=== PATIENT | female | born 1950 | race Caucasian/White ===

== ENCOUNTER 2017-10-05 13:04 | Inpatient (IN) | payer MEDICARE ==
[~2017-10-05] VITALS: Ht 152.4 cm; Wt 95.4 kg
[~2017-10-05 13:04] MED LIST: ATOR40TA69 PO; FURO40TA5 PO
[2017-10-09 15:57] VITALS: BP 119/66
[2017-10-09 16:02] LABS: CREATININE 1.3 mg/dL (0.5-1.5)
[2017-10-09 16:06] LABS: POTASSIUM 2.8 mmol/L (3.5-5.1)
[2017-10-09 16:16] LABS: INR 0.94 (0.85-1.15); PARTIAL THROMBOPLASTIN TIME 25.1 SEC (26.3-35.5); PROTHROMBIN TIME 9.9 SEC (9.6-11.6)
[2017-10-09] MEDS ORDERED: ALPR0.5T PO (16:34)
[2017-10-09] MEDS ORDERED: BUME2TAB18 PO (16:34)
[2017-10-09] MEDS ORDERED: SENN-175 PO (16:34)
[2017-10-09] MEDS ORDERED: TYL3 PO (16:34)
[2017-10-09] MEDS ORDERED: ESCI20TA36 PO (16:34)
[2017-10-09] MEDS ORDERED: QUET300XR PO (16:34)
[2017-10-09] MEDS ORDERED: POTA-79 PO (16:34)
[2017-10-09] MEDS ORDERED: LEVO125T4 PO (16:34)
[2017-10-10 07:08] LABS: APPEARANCE,URINE Clear (CLEAR); BILIRUBIN,URINE Negative (NEGATIVE); COLOR,URINE Yellow (YELLOW); GLUCOSE, URINE (UA) Negative (NEGATIVE); KETONES,URINE Negative (NEGATIVE); LEUKOCYTE ESTERASE ,URINE Negative (NEGATIVE); NITRATE,URINE Negative (NEGATIVE); OCCULT BLOOD,URINE Negative (NEGATIVE); PROTEIN,URINE Negative (NEGATIVE); UROBILINOGEN,URINE 0.2 mg/dL (0.2-1.0)
[2017-10-10] MEDS ORDERED: SODIUM CHLORIDE 0.9% 1000ML 1,000 ML IV ONE (07:19)
[2017-10-10] MEDS ORDERED: POTASSIUM CHLORIDE 20MEQ/100ML 100 ML IV ONE (07:31)
[2017-10-10] MEDS ORDERED: POTASSIUM CHLORIDE 20MEQ/100ML 100 ML IV PRN (07:45)
[2017-10-10] MEDS ORDERED: LIDOCAINE HCL-MPF 1% 2ML VIAL IJ PRN (07:45)
[2017-10-10] MEDS ORDERED: POTASSIUM CHLORIDE 20 MEQ ERTAB PO PRN (07:45)
[2017-10-10] MEDS ORDERED: SODIUM CHLORIDE 0.9% 1000ML 1,000 ML IV SCH (07:45)
[2017-10-10] MEDS ORDERED: POTASSIUM CHLORIDE 10% ELIXIR 20 MEQ/15 ML UDCUP PO PRN (07:45)
[2017-10-10 07:54] VITALS: BP 97/64
== END 2017-10-10 09:36 | disposition home or self-care (01) | DRG 556 ==
LOC: EDSTATUS 15:15 → DAHIP 10-10 06:28
PROVIDERS: ADMIT Orthopaedic Surgery; ATTEND Orthopaedic Surgery
DX: M25.562 Pain in left knee (principal); E87.5 Hyperkalemia; E03.9 Hypothyroidism, unspecified; G89.29 Other chronic pain; E78.5 Hyperlipidemia, unspecified; K21.9 Gastro-esophageal reflux disease without esophagitis; F32.9 Major depressive disorder, single episode, unspecified; F41.9 Anxiety disorder, unspecified; Z98.49 Cataract extraction status, unspecified eye; Z88.1 Allergy status to other antibiotic agents; Z91.040 Latex allergy status; Z91.048 Other nonmedicinal substance allergy status; Z84.89 Family history of other specified conditions
CPT/HCPCS: 36415; 80048; 81003; 84132; 85610; 85730; J3480; J7030

== ENCOUNTER 2017-11-23 15:30 | Inpatient (IN) | payer MEDICARE ==
[~2017-11-23] VITALS: Ht 152.4 cm; Wt 98.8 kg
[~2017-11-23 15:30] MED LIST changes: +ALPR0.5T PO; +ESCI20TA36 PO; -FURO40TA5 PO; +LEVO125T4 PO; +POTA-79 PO; +QUET300XR PO; +SENN-175 PO; +TYL3 PO
[2017-11-23 16:15] VITALS: BP 107/65
[2017-11-23 16:26] LABS: BASOPHILS % (AUTO) 0.7 % (0.0-5.0); EOSINOPHILS % (AUTO) 3.7 % (0.0-8.0); HEMATOCRIT 36.6 % (36-48); LYMPHOCYTES % (AUTO) 43.4 % (21.0-51.0); MEAN CORPUSCULAR HEMOGLOBIN 30.9 pg (27.0-33.0); MEAN CORPUSCULAR HGB CONC 34.5 g/dL (32.0-36.0); MEAN CORPUSCULAR VOLUME 89.6 fL (79-99); MONOCYTES % (AUTO) 6.1 % (3.0-13.0); NEUTROPHILS % (AUTO) 46.1 % (40.0-77.0); NUCLEATED RED BLOOD CELLS 0.1 % (0.0-0.19); PLATELET COUNT (AUTO) 254 K/uL (130-400); RED BLOOD CELL COUNT(AUTO) 4.08 MIL/uL (4.00-5.50); RED CELL DISTRIBUTION WIDTH 15.5 % (11.0-15.5); WHITE BLOOD COUNT (AUTO) 8.5 K/uL (4.8-10.8)
[2017-11-23 16:38] LABS: POTASSIUM 4.4 mmol/L (3.5-5.1)
[2017-11-23 16:42] LABS: INR 0.95 (0.85-1.15); PARTIAL THROMBOPLASTIN TIME 26.1 SEC (26.3-35.5)
[2017-11-23] MEDS ORDERED: FURO40TA5 PO (16:54)
[2017-11-26] VITALS (22 sets, daily range): BP systolic 109–152; BP diastolic 60–83
[2017-11-26] MEDS ORDERED: DEXAMETHASONE SOD PHOSPHATE 10MG/ML 1ML VIAL ONE (09:33)
[2017-11-26] MEDS ORDERED: NEOSTIGMINE 5MG/5ML SYR IV ONE ×2 (09:33→13:23)
[2017-11-26] MEDS ORDERED: GLYCOPYRROLATE 0.2 MG/ML 5 ML VIAL ONE ×2 (09:33→13:23)
[2017-11-26] MEDS ORDERED: ONDANSETRON HCL 4 MG/2 ML VIAL ONE (09:33)
[2017-11-26] MEDS ORDERED: LIDOCAINE PF 2% 5ML ABBOJECT ONE (09:33)
[2017-11-26] MEDS ORDERED: MIDAZOLAM HCL 1 MG/ML 2ML VIAL ONE (09:34)
[2017-11-26] MEDS ORDERED: FENTANYL CITRATE PF 50 MCG/1 ML 2ML VIAL ONE ×2 (09:34→12:49)
[2017-11-26] MEDS ORDERED: PROPOFOL 10 MG/ML 20ML VIAL IV ONE ×2 (09:34→14:05)
[2017-11-26] MEDS ORDERED: LACTATED RINGERS 1000ML 1,000 ML IV ONE (09:48)
[2017-11-26] MEDS: CEFAZOLIN SODIUM 1 GM VIAL IVP SCH ×3 (10:00→18:50)
[2017-11-26] MEDS ORDERED: ESOM40SU PO (10:38)
[2017-11-26] MEDS ORDERED: KETOROLAC TROMETHAMINE 15MG/ML ONE (11:08)
[2017-11-26] MEDS ORDERED: ACETAMINOPHEN EXTRA STRENGTH 500 MG TABLET ONE (11:08)
[2017-11-26] MEDS ORDERED: CELECOXIB 200 MG CAP ONE (11:08)
[2017-11-26] MEDS ORDERED: METOCLOPRAMIDE 10 MG/2 ML VIAL ONE (11:08)
[2017-11-26] MEDS ORDERED: OXYCODONE HCL 10 MG TAB.SR.12H PO ONE (11:09)
[2017-11-26] MEDS ORDERED: EPINEPHRINE 1 MG/ML AMPULE ONE (11:14)
[2017-11-26] MEDS ORDERED: BUPIVACAINE/PF 0.25% 30ML VIAL IJ ONE (11:14)
[2017-11-26] MEDS ORDERED: TRANEXAMIC ACID 1000MG/10ML IV ONE (11:15)
[2017-11-26] MEDS ORDERED: CEFAZOLIN SODIUM 1 GM VIAL ONE (11:15)
[2017-11-26] MEDS ORDERED: PHENYLEPHRINE HCL 10 MG/ML 1ML VIAL IV ONE ×2 (13:18→13:22)
[2017-11-26] MEDS ORDERED: ROCURONIUM BROMIDE 10MG/1ML 5ML VL ONE (13:23)
[2017-11-26] MEDS ORDERED: FENTANYL CITRATE PF 50 MCG/1 ML 5ML AMP IV ONE (13:49)
[2017-11-26] MEDS: SODIUM CHLORIDE 0.9% 1000ML 1,000 ML IV SCH (14:27)
[2017-11-26] MEDS ORDERED: POTASSIUM CHLORIDE 20 MEQ ERTAB PO PRN (14:30)
[2017-11-26] MEDS ORDERED: DiphenhydrAMINE HCL 50 MG/ML VIAL IVP PRN (14:30)
[2017-11-26] MEDS ORDERED: POTASSIUM CHLORIDE 20MEQ/100ML 100 ML IV PRN (14:30)
[2017-11-26] MEDS ORDERED: CALCIUM CARBONATE 500 MG TABLET PO PRN (14:30)
[2017-11-26] MEDS ORDERED: OXYCODONE HCL 5 MG TAB PO PRN ×2 (14:30)
[2017-11-26] MEDS ORDERED: TRAMADOL HCL 50 MG TABLET PO PRN (14:30)
[2017-11-26] MEDS ORDERED: ONDANSETRON HCL 4 MG/2 ML VIAL IVP PRN (14:30)
[2017-11-26] MEDS: ACETAMINOPHEN EXTRA STRENGTH 500 MG TABLET PO SCH ×2 (14:30→21:52)
[2017-11-26] MEDS ORDERED: POTASSIUM CHLORIDE 10% ELIXIR 20 MEQ/15 ML UDCUP PO PRN (14:30)
[2017-11-26] MEDS ORDERED: KETOROLAC TROMETHAMINE 15MG/ML IV PRN (14:30)
[2017-11-26] MEDS ORDERED: TEMAZEPAM 15 MG CAPSULE PO PRN (14:30)
[2017-11-26] MEDS ORDERED: FERROUS FUMARATE 324 MG TABLET PO PRN (14:30)
[2017-11-26] MEDS ORDERED: LIDOCAINE HCL-MPF 1% 2ML VIAL IVP PRN (14:30)
[2017-11-26] MEDS ORDERED: SUB TO ALBUTEROL 2.5MG/3ML NEBULES PER P&T IH ONE (14:47)
[2017-11-26] MEDS ORDERED: ALBUTEROL SULFATE 0.083% 2.5 MG/3 ML INH IH ONE (14:50)
[2017-11-26] MEDS ORDERED: CEFAZOLIN 2GM / 50 ML 50 ML IV SCH (19:30)
[2017-11-26] MEDS ORDERED: QUETIAPINE FUMARATE 300 MG PO SCH (21:00)
[2017-11-26] MEDS: PREGABALIN 25 MG CAP PO SCH (21:51)
[2017-11-26] MEDS: FAMOTIDINE 20MG TAB 20 MG TAB PO SCH (21:51)
[2017-11-26] MEDS: ASPIRIN 325 MG TABLET PO SCH (21:51)
[2017-11-27] VITALS: BP 102/60
[2017-11-27] MEDS: SODIUM CHLORIDE 0.9% 1000ML 1,000 ML IV SCH ×2 (02:40→10:27)
[2017-11-27] MEDS: CEFAZOLIN SODIUM 1 GM VIAL IVP SCH (02:52)
[2017-11-27 04:00] VITALS: BP 114/66
[2017-11-27 05:47] LABS: MEAN CORPUSCULAR HEMOGLOBIN 29.6 pg (27.0-33.0); MEAN CORPUSCULAR HGB CONC 32.8 g/dL (32.0-36.0); PLATELET COUNT (AUTO) 234 K/uL (130-400); RED BLOOD CELL COUNT(AUTO) 3.89 MIL/uL (4.00-5.50); RED CELL DISTRIBUTION WIDTH 15.5 % (11.0-15.5); WHITE BLOOD COUNT (AUTO) 9.4 K/uL (4.8-10.8)
[2017-11-27 05:58] LABS: CREATININE 1.1 mg/dL (0.5-1.5); POTASSIUM 5.3 mmol/L (3.5-5.1)
[2017-11-27] MEDS ORDERED: LEVOTHYROXINE 125 MCG TABLET PO SCH (06:30)
[2017-11-27] MEDS: ACETAMINOPHEN EXTRA STRENGTH 500 MG TABLET PO SCH ×2 (06:37→14:03)
[2017-11-27] MEDS: PREGABALIN 25 MG CAP PO SCH (08:41)
[2017-11-27] MEDS: ASPIRIN 325 MG TABLET PO SCH (08:41)
[2017-11-27] MEDS: FAMOTIDINE 20MG TAB 20 MG TAB PO SCH (08:41)
[2017-11-27] MEDS ORDERED: ALPRAZOLAM 0.5 MG TABLET PO SCH (09:00)
[2017-11-27] MEDS ORDERED: ATORVASTATIN CALCIUM 40 MG TABLET PO SCH (09:00)
[2017-11-27] MEDS ORDERED: FUROSEMIDE 40 MG TABLET PO SCH (09:00)
[2017-11-27] MEDS ORDERED: SENNOSIDES 8.6 MG TABLET PO SCH (09:00)
[2017-11-27] MEDS ORDERED: POLYETHYLENE GLYCOL 3350 17 GM POWD.PACK PO SCH (09:00)
[2017-11-27] MEDS ORDERED: POTASSIUM CHLORIDE 20 MEQ ERTAB PO SCH (09:00)
[2017-11-27] MEDS ORDERED: CITALOPRAM 20 MG TABLET PO SCH (09:00)
[2017-11-27 09:03] VITALS: BP 129/73
[2017-11-27 11:29] VITALS: BP 118/66
[2017-11-27 16:43] VITALS: BP 130/62
[2017-11-27] MEDS ORDERED: HYDR-309 PO (17:54)
[2017-11-27] MEDS ORDERED: ASPI-1012 PO (17:54)
[2017-11-27 19:15] VITALS: BP 114/65
[2017-11-29] MEDS ORDERED: BISACODYL 10 MG SUPP.RECT RC PRN (14:30)
== END 2017-11-27 21:00 | disposition home health service (06) | DRG 469 ==
LOC: EDSTATUS 15:30 → DAHIP 11-26 09:16 → 4AH 11-26 15:16
PROVIDERS: ADMIT Orthopaedic Surgery; ATTEND Orthopaedic Surgery
PROC: 0SRG0J9 Replacement of Left Ankle Joint with Synthetic Substitute, Cemented, Open Approach (ICD-10-PCS; principal; 2017-11-26 12:20)
PROC: 0SPG0JZ Removal of Synthetic Substitute from Left Ankle Joint, Open Approach (ICD-10-PCS; 2017-11-26 12:20)
DX: T84.84XA Pain due to internal orthopedic prosthetic devices, implants and grafts, initial encounter (principal); G89.29 Other chronic pain; E78.5 Hyperlipidemia, unspecified; K21.9 Gastro-esophageal reflux disease without esophagitis; F32.9 Major depressive disorder, single episode, unspecified; Y83.8 Other surgical procedures as the cause of abnormal reaction of the patient, or of later complication, without mention of misadventure at the time of the procedure; F41.9 Anxiety disorder, unspecified; Z98.51 Tubal ligation status; Y92.89 Other specified places as the place of occurrence of the external cause; Z98.49 Cataract extraction status, unspecified eye; M17.11 Unilateral primary osteoarthritis, right knee
CPT/HCPCS: 36415; 80048; 85025; 85027; 85610; 85730; 87070; 87076; 87205; 88300; 88305; 88311; 96374; 96375; A4218; J0171; J0690; J1100; J1885; J2001; J2250; J2370; J2405; J2704; J2710; J2765; J3010; J3490; J7030; J7120

== ENCOUNTER → 2019-02-21 | Outpatient (CLI) | payer MEDICARE ==
[~2019-02-21] MED LIST changes: +ASPI-1012 PO; +ESOM40SU PO; +FURO40TA5 PO; +HYDR-4457 PO; -POTA-79 PO; +QUET300T5 PO; -QUET300XR PO; -SENN-175 PO; +SENN8.6T32 PO; -TYL3 PO
== END | disposition home or self-care (01) ==
LOC: SHCH 15:10
PROVIDERS: ATTEND Internal Medicine Cardiovascular Disease
DX: I73.9 Peripheral vascular disease, unspecified (principal)
CPT/HCPCS: 93922

== ENCOUNTER → 2020-11-11 | Outpatient (CLI) | payer OTHER ==
[~2020-11-11] MED LIST changes: -ESCI20TA36 PO; +ESCI20TA38 PO
== END | disposition home or self-care (01) ==
LOC: OIH 13:03
PROVIDERS: ATTEND Internal Medicine Cardiovascular Disease
DX: Z13.6 Encounter for screening for cardiovascular disorders (principal)
CPT/HCPCS: 75571

== ENCOUNTER → 2021-05-25 | Outpatient (CLI) | payer MEDICARE | END | disposition home or self-care (01) | LOC: RAH 10:00 | PROVIDERS: ATTEND Internal Medicine | DX: M79.605 Pain in left leg (principal); M79.672 Pain in left foot; R60.0 Localized edema; W19.XXXA Unspecified fall, initial encounter | CPT/HCPCS: 73590; 73610 ==

== ENCOUNTER 2022-07-04 13:45 | Emergency (ER) | payer MEDICARE | END 2022-07-04 14:00 | disposition home or self-care (01) | LOC: CANPREER → EDH 13:45 ==

== ENCOUNTER 2022-10-26 11:41 | Emergency (ER) | payer MEDICARE ==
[~2022-10-26] VITALS: Ht 152.4 cm; Wt 77.1 kg
[2022-10-26 12:19] LABS: BASOPHILS % (AUTO) 0.7 % (0.0-5.0); EOSINOPHILS % (AUTO) 3.8 % (0.0-8.0); LYMPHOCYTES % (AUTO) 43.6 % (21.0-51.0); MEAN CORPUSCULAR HEMOGLOBIN 31.8 pg (27.0-33.0); MEAN CORPUSCULAR HGB CONC 33.3 g/dL (32.0-36.0); MEAN CORPUSCULAR VOLUME 95.4 fL (79-99); MONOCYTES % (AUTO) 6.3 % (3.0-13.0); NEUTROPHILS % (AUTO) 45.5 % (40.0-77.0); PLATELET COUNT (AUTO) 216 K/uL (130-400); RED BLOOD CELL COUNT(AUTO) 4.09 MIL/uL (4.00-5.50); RED CELL DISTRIBUTION WIDTH 14.5 % (11.0-15.5); WHITE BLOOD COUNT (AUTO) 6.9 K/uL (4.8-10.8)
[2022-10-26 12:46] LABS: CARBON DIOXIDE 28 mmol/L (21-32); CHLORIDE 104 mmol/L (101-111); CREATININE 1.2 mg/dL (0.5-1.5); GLOMERULAR FILTR. RATE CALC 48 mL/min (>90); GLUCOSE,RANDOM 88 mg/dL (70-105); POTASSIUM 3.5 mmol/L (3.5-5.1); SODIUM SERUM 137 mmol/L (136-145); UREA NITROGEN, BLOOD 9 mg/dL (7-18)
[2022-10-26 12:50] LABS: ALANINE AMINOTRANSFERASE 12 U/L (12-78); ALBUMIN 3.3 g/dL (3.5-5.0); ASPARTATE AMINOTRANSFERASE 25 U/L (10-37); SALICYLATE 3.2 mg/dL (2.8-20.0); TOTAL PROTEIN, SERUM 7.1 g/dL (6.0-8.3)
[2022-10-26 12:54] LABS: ACETAMINOPHEN < 1 mcg/mL (10-30)
[2022-10-26 13:36] LABS: APPEARANCE,URINE CLOUDY (CLEAR); BILIRUBIN,URINE NEGATIVE (NEGATIVE); COLOR,URINE LIGHT-YELLOW (YELLOW); GLUCOSE, URINE (UA) NEGATIVE (NEGATIVE); KETONES,URINE NEGATIVE (NEGATIVE); LEUKOCYTE ESTERASE ,URINE 75 Leu/uL (NEGATIVE); NITRATE,URINE NEGATIVE (NEGATIVE); OCCULT BLOOD,URINE NEGATIVE (NEGATIVE); PROTEIN,URINE NEGATIVE (NEGATIVE); UROBILINOGEN,URINE 0.2 mg/dL (0.2-1.0)
[2022-10-26 13:43] LABS: AMPHET/METH SCREEN,URINE POSITIVE (NEGATIVE); BARBITURATE SCREEN, URINE NEGATIVE (NEGATIVE); BENZODIAZEPINES SCREEN,URINE NEGATIVE (NEGATIVE); CANNABINOID SCREEN,URINE NEGATIVE (NEGATIVE); COCAINE SCREEN,URINE NEGATIVE (NEGATIVE); OPIATE SCREEN,URINE NEGATIVE (NEGATIVE); PHENCYCLIDINE SCREEN,URINE NEGATIVE (NEGATIVE)
[2022-10-26 13:47] LABS: BACTERIA,URINE FEW /HPF (None Seen); MUCUS,URINE RARE LPF (None Seen); OTHER CASTS, URINE 1 /LPF (None Seen); RBC,URINE 0-1 /HPF (0-1); SQUAMOUS EPITHELIAL CELL,UR FEW /HPF (0-2); TRANSITIONAL EPI CELLS,URINE RARE /HPF (None Seen)
[2022-10-26] MEDS ORDERED: CEFTRIAXONE 1G VIAL IVPB SCH (14:00)
[2022-10-26 16:00] VITALS: BP 128/70
== END 2022-10-26 16:47 | disposition home or self-care (01) ==
LOC: EDH 11:41
DX: R44.3 Hallucinations, unspecified (principal); N39.0 Urinary tract infection, site not specified; F99 Mental disorder, not otherwise specified; Z79.82 Long term (current) use of aspirin; Z79.899 Other long term (current) drug therapy; Z88.2 Allergy status to sulfonamides; Z91.040 Latex allergy status
CPT/HCPCS: 99285; 96365; 71045; 96366; 80053; 80305; 85025; 87077; 87088; 87186; 81001; 36415; 93005; G0481; J0696

== ENCOUNTER 2023-08-04 12:05 | Emergency (ER) | payer MEDICARE ==
[~2023-08-04] VITALS: Ht 152.4 cm; Wt 63.0 kg
[2023-08-04] MEDS ORDERED: MOXIOS OD (13:57)
[2023-08-04] MEDS ORDERED: CLIN-141 PO (13:57)
[2023-08-04] MEDS: CLINDAMYCIN 150 MG CAP PO STA (14:01)
[2023-08-04 14:18] VITALS: BP 114/67; PULSE 74; RESP 18; O2SAT 99
== END 2023-08-04 14:23 | disposition home or self-care (01) ==
LOC: EDH 12:05
DX: H10.89 Other conjunctivitis (principal); H01.006 Unspecified blepharitis left eye, unspecified eyelid; Z79.82 Long term (current) use of aspirin; Z79.890 Hormone replacement therapy; Z79.899 Other long term (current) drug therapy; Z88.2 Allergy status to sulfonamides; Z91.040 Latex allergy status

== ENCOUNTER 2024-01-06 14:34 | Inpatient (IN) | payer MEDICARE ==
[~2024-01-06] VITALS: Ht 152.4 cm; Wt 61.5 kg
[~2024-01-06 14:34] MED LIST changes: -ALPR0.5T PO; -HYDR-4457 PO; -LEVO125T4 PO; +LEVO125T95 PO
[2024-01-06 15:30] LABS: BASOPHILS # (AUTO) 0.04 K/uL (0.00-0.20); BASOPHILS % (AUTO) 0.5 % (0.0-5.0); EOSINOPHILS # (AUTO) 0.18 K/uL (0.00-0.70); EOSINOPHILS % (AUTO) 2.4 % (0.0-8.0); HEMATOCRIT 27.4 % (36-48); IMMATURE GRANULOCYTE ABSOLUTE 0.05 K/uL (0-1); LYMPHOCYTES # (AUTO) 1.9 K/uL (1.0-4.8); LYMPHOCYTES % (AUTO) 24.7 % (21.0-51.0); MEAN CORPUSCULAR HEMOGLOBIN 36.4 pg (27.0-33.0); MEAN CORPUSCULAR HGB CONC 33.6 g/dL (32.0-36.0); MEAN CORPUSCULAR VOLUME 108.3 fL (79-99); MONOCYTES # (AUTO) 0.7 K/uL (0.1-1.0); MONOCYTES % (AUTO) 8.7 % (3.0-13.0); NEUTROPHILS # (AUTO) 4.7 K/uL (1.8-7.7); PLATELET COUNT (AUTO) 172 K/uL (130-400); RED BLOOD CELL COUNT(AUTO) 2.53 MIL/uL (4.00-5.50); RED CELL DISTRIBUTION WIDTH 15.9 % (11.0-15.5); WHITE BLOOD COUNT (AUTO) 7.5 K/uL (4.8-10.8)
[2024-01-06 15:43] LABS: INR 1.03 (0.85-1.15); PROTHROMBIN TIME 11.1 SEC (9.6-11.6)
[2024-01-06 15:44] LABS: PARTIAL THROMBOPLASTIN TIME 24.5 SEC (26.3-35.5)
[2024-01-06 15:49] LABS: CARBON DIOXIDE 27 mmol/L (21-32); CHLORIDE 108 mmol/L (101-111); CREATININE 1.2 mg/dL (0.5-1.0); GLOMERULAR FILTR. RATE CALC 48 mL/min (>90); GLUCOSE,RANDOM 89 mg/dL (70-105); POTASSIUM 4.1 mmol/L (3.5-5.1); SODIUM SERUM 141 mmol/L (136-145); UREA NITROGEN, BLOOD 26 mg/dL (7-18)
[2024-01-06 15:54] LABS: AMMONIA < 10 umol/L (11-32); CREATINE KINASE, TOTAL 30 U/L (21-232)
[2024-01-06 16:18] LABS: SARS-CoV-2, RNA, NAAT NEGATIVE SARS CoV-2 (NEGATIVE)
[2024-01-06 17:06] LABS: APPEARANCE,URINE CLEAR (CLEAR); BILIRUBIN,URINE NEGATIVE (NEGATIVE); COLOR,URINE LIGHT-YELLOW (YELLOW); GLUCOSE, URINE (UA) NEGATIVE (NEGATIVE); KETONES,URINE NEGATIVE (NEGATIVE); LEUKOCYTE ESTERASE ,URINE 250 Leu/uL (NEGATIVE); NITRATE,URINE NEGATIVE (NEGATIVE); OCCULT BLOOD,URINE NEGATIVE (NEGATIVE); PH,URINE 7.5 (5.0-8.0); PROTEIN,URINE NEGATIVE (NEGATIVE); UROBILINOGEN,URINE 0.2 mg/dL (0.2-1.0)
[2024-01-06 17:12] LABS: SQUAMOUS EPITHELIAL CELL,UR RARE /HPF (0-2); WBC,URINE 51-100 /HPF (0-1)
[2024-01-06 17:13] LABS: AMPHET/METH SCREEN,URINE NEGATIVE (NEGATIVE); BARBITURATE SCREEN, URINE NEGATIVE (NEGATIVE); BENZODIAZEPINES SCREEN,URINE NEGATIVE (NEGATIVE); CANNABINOID SCREEN,URINE NEGATIVE (NEGATIVE); COCAINE SCREEN,URINE NEGATIVE (NEGATIVE); OPIATE SCREEN,URINE NEGATIVE (NEGATIVE); PHENCYCLIDINE SCREEN,URINE NEGATIVE (NEGATIVE)
[2024-01-06] MEDS: CEFTRIAXONE 1G VIAL IVPB ONE (18:41)
[2024-01-06] MEDS ORDERED: CEFTRIAXONE 1G VIAL 1 GM in 0.9%NACL 50ML 50 ML IV SCH (19:00)
[2024-01-06] MEDS ORDERED: MORPHINE 4 MG SYG IV PRN (19:00)
[2024-01-06] MEDS ORDERED: CEFTRIAXONE 1G VIAL IVPB SCH (19:00)
[2024-01-06] MEDS ORDERED: ONDANSETRON 4MG INJ IV PRN (19:00)
[2024-01-06] MEDS ORDERED: ACETAMINOPHEN 325 MG TAB PO PRN ×2 (19:00)
[2024-01-06] MEDS: IPRATROPIUM/ALBUTEROL SULFATE 3 ML SOLUTION IH ONE (22:43)
[2024-01-06] MEDS: IPRATROPIUM/ALBUTEROL SULFATE 3 ML SOLUTION IH SCH (23:20)
[2024-01-06 23:24] VITALS: PULSE 56; RESP 18
[2024-01-06 23:25] VITALS: PULSE 58; RESP 18; O2SAT 98
[2024-01-06 23:45] VITALS: BP 120/60; PULSE 61; RESP 18; O2SAT 98
[2024-01-07] VITALS (12 sets, daily range): BP systolic 90–106; BP diastolic 40–65; PULSE 49–71; RESP 14–18; O2SAT 98
[2024-01-07] MEDS: LEVOTHYROXINE 125 MCG TABLET PO SCH (05:38)
[2024-01-07] MEDS: BUDESONIDE 0.5 MG/2 ML INH IH SCH (06:32)
[2024-01-07] MEDS: NICOTINE 14 MG/ 24 HR PATCH TD SCH (09:00)
[2024-01-07] MEDS: ENOXAPARIN SODIUM 40 MG/0.4 ML SYRINGE SQ SCH (10:20)
[2024-01-07] MEDS: FAMOTIDINE 20MG TAB PO SCH (10:20)
[2024-01-07 14:39] LABS: BASOPHILS # (AUTO) 0.05 K/uL (0.00-0.20); BASOPHILS % (AUTO) 0.7 % (0.0-5.0); EOSINOPHILS # (AUTO) 0.16 K/uL (0.00-0.70); EOSINOPHILS % (AUTO) 2.4 % (0.0-8.0); HEMATOCRIT 30.5 % (36-48); IMMATURE GRANULOCYTE ABSOLUTE 0.03 K/uL (0-1); MEAN CORPUSCULAR HEMOGLOBIN 36.1 pg (27.0-33.0); MEAN CORPUSCULAR HGB CONC 32.5 g/dL (32.0-36.0); MEAN CORPUSCULAR VOLUME 111.3 fL (79-99); MONOCYTES # (AUTO) 0.6 K/uL (0.1-1.0); MONOCYTES % (AUTO) 9.2 % (3.0-13.0); NEUTROPHILS # (AUTO) 3.9 K/uL (1.8-7.7); NEUTROPHILS % (AUTO) 57.3 % (40.0-77.0); PLATELET COUNT (AUTO) 183 K/uL (130-400); RED BLOOD CELL COUNT(AUTO) 2.74 MIL/uL (4.00-5.50); RED CELL DISTRIBUTION WIDTH 15.9 % (11.0-15.5); WHITE BLOOD COUNT (AUTO) 6.8 K/uL (4.8-10.8)
[2024-01-07 14:56] LABS: CREATININE 1.3 mg/dL (0.5-1.0); THYROID STIMULATING HORMONE 51.3 uIU/mL (0.36-3.74)
[2024-01-07] MEDS: CEFTRIAXONE 1G VIAL IVPB SCH (18:50)
[2024-01-08] VITALS (12 sets, daily range): BP systolic 85–147; BP diastolic 41–92; PULSE 43–76; RESP 16–18; O2SAT 97–99
[2024-01-08] MEDS: CEFTRIAXONE 1G VIAL IVPB SCH (09:49)
[2024-01-08] MEDS: NACL IV ONE (09:49)
[2024-01-08] MEDS ORDERED: MORPHINE 2 MG SYG IV PRN (12:30)
[2024-01-08] MEDS: MIDODRINE HCL 5 MG TABLET PO PRN (13:53)
[2024-01-09] VITALS (7 sets, daily range): BP systolic 88–104; BP diastolic 30–62; PULSE 50–65; RESP 18; O2SAT 92–100
[2024-01-09 05:17] LABS: BASOPHILS # (AUTO) 0.05 K/uL (0.00-0.20); BASOPHILS % (AUTO) 0.8 % (0.0-5.0); EOSINOPHILS # (AUTO) 0.19 K/uL (0.00-0.70); EOSINOPHILS % (AUTO) 3.1 % (0.0-8.0); HEMATOCRIT 29.1 % (36-48); IMMATURE GRANULOCYTE ABSOLUTE 0.03 K/uL (0-1); LYMPHOCYTES # (AUTO) 2.1 K/uL (1.0-4.8); MEAN CORPUSCULAR HEMOGLOBIN 36.6 pg (27.0-33.0); MEAN CORPUSCULAR VOLUME 114.6 fL (79-99); MONOCYTES # (AUTO) 0.5 K/uL (0.1-1.0); MONOCYTES % (AUTO) 8.5 % (3.0-13.0); NEUTROPHILS # (AUTO) 3.2 K/uL (1.8-7.7); NEUTROPHILS % (AUTO) 52.1 % (40.0-77.0); PLATELET COUNT (AUTO) 175 K/uL (130-400); RED BLOOD CELL COUNT(AUTO) 2.54 MIL/uL (4.00-5.50); RED CELL DISTRIBUTION WIDTH 16.1 % (11.0-15.5); WHITE BLOOD COUNT (AUTO) 6.1 K/uL (4.8-10.8)
[2024-01-09 05:49] LABS: CREATININE 1.3 mg/dL (0.5-1.0); POTASSIUM 4.4 mmol/L (3.5-5.1)
== END 2024-01-09 15:05 | DRG 871 ==
LOC: EDH 14:34 → EDHIP 18:46 → 3AH 23:44
PROVIDERS: ADMIT Internal Medicine; ATTEND Internal Medicine
DX: A41.9 Sepsis, unspecified organism (principal); G93.41 Metabolic encephalopathy; N39.0 Urinary tract infection, site not specified; Z20.822 Contact with and (suspected) exposure to COVID-19; J44.9 Chronic obstructive pulmonary disease, unspecified; F31.9 Bipolar disorder, unspecified; E03.9 Hypothyroidism, unspecified; G40.909 Epilepsy, unspecified, not intractable, without status epilepticus; E78.00 Pure hypercholesterolemia, unspecified; F17.210 Nicotine dependence, cigarettes, uncomplicated; I10 Essential (primary) hypertension; I25.10 Atherosclerotic heart disease of native coronary artery without angina pectoris; R29.6 Repeated falls; R62.7 Adult failure to thrive; Z96.652 Presence of left artificial knee joint; K21.9 Gastro-esophageal reflux disease without esophagitis; Z82.0 Family history of epilepsy and other diseases of the nervous system; Z91.148 Patient's other noncompliance with medication regimen for other reason; Z82.49 Family history of ischemic heart disease and other diseases of the circulatory system; Z91.041 Radiographic dye allergy status; Z88.2 Allergy status to sulfonamides; Z88.8 Allergy status to other drugs, medicaments and biological substances; Z91.048 Other nonmedicinal substance allergy status; Z68.26 Body mass index [BMI] 26.0-26.9, adult
CPT/HCPCS: 36415; 70450; 71045; 80048; 80305; 81001; 82140; 82550; 83605; 84145; 84443; 84484; 85025; 85610; 85730; 87086; 87186; 87635; 93005; 94640; 94664; 96365; G0378; J0696; J1650

== ENCOUNTER 2025-04-28 14:40 | Emergency (ER) | payer MEDICARE ==
[~2025-04-28] VITALS: Ht 152.4 cm; Wt 76.2 kg
[~2025-04-28 14:40] MED LIST changes: +ACET-3859 PO; +ASCO250T70 PO; -ATOR40TA69 PO; +ATOR40TA71 PO; +BUDE0.5A3 IH; +DIVA125T2 PO; +DOXY100T21 PO; +ESOM40CA66 PO; -ESOM40SU PO; +FAMO20TA8 PO; +FERR324T4 PO; +FERS325 PO; +FLUT1DIS IH; +FURO20TA6 PO; -FURO40TA5 PO; +IPRA3AMP24 IH; +LEVO125T11 PO; -LEVO125T95 PO; +MIDO5TAB4 PO; +ONDA-243 PO; +OXCA150T3 PO; -QUET300T5 PO; +TRAZ-185 PO; +VITA15LO2 PO
--- NOTE | 2025-04-28 14:54 | ERN ---
ED Note History of Present Illness Stated Complaint: DIZZINESS W/FALL INJURING LEFT SHOULDER Chief Complaint: Dizzy/Light Headed Time Seen by MD: 14:42 Dictation: PATIENT IS A 75-YEAR-OLD FEMALE COMING IN VIA EMS STATES SHE HAD A NEAR SYNCOPAL EPISODE FELL AND HIT THE BACK OF HER HEAD. NO LOC NO NAUSEA VOMITING. THERE WAS NO NECK PAIN NO MIDLINE SPINE PAIN. SHE IS ALSO COMPLAINING OF LEFT SHOULDE R PAIN. NEUROVASCULAR CMS INTACT NIH IS 0 AND SHE IS ANSWERING QUESTIONS APPROPRIATELY. CERVICAL COLLAR REMOVED BY SYSTEMS ENGINEERING MANAGER ON EXAM AT BEDSIDE. NEUROVASCULAR CMS INTACT TO ALL EXTREMITIES POST REMOVAL. PATIENT DENIES CHEST PAIN BACK PAIN. WARD OR RACCOON SIGN NO HEMOTYMPANUM NO TRAUMA ALERT CRITERIA Allergies: Coded Allergies: Latex, Natural Rubber (Unverified Allergy, Unknown, 01/09/16) Sulfa (Sulfonamide Antibiotics) (Unverified Allergy, Unknown, 10/09/17) adhesive tape (Unverified Allergy, Unknown, 10/09/17) carbidopa (Unverified Allergy, Unknown, 01/09/16) levodopa (Unverified Allergy, Unknown, 01/09/16) sulfadiazine (Unverified Allergy, Unknown, 01/09/16) Home Meds Active Scripts Aspirin (ASPIRIN) 325 Mg Tablet, 325 MG PO DAILY, #20 TAB Prov:JANNETH RIZVI MD 02/18/24 Doxycycline Monohydrate (Doxycycline Monohydrate) 100 Mg Tablet, 100 MG PO BID, #15 TAB Prov:JANNETH RIZVI MD 02/18/24 Ferrous Sulfate (Ferrous Sulfate) 324 Mg (65 Mg Iron) Tablet.dr, 325 MG PO DAILY, #30 TAB Prov:JANNETH RIZVI MD 02/18/24 Vitamin A/Vit C/Zinc/Propolis (Zinc 15 mg Lozenges) 15 Mg Lozenge, 15 MG PO AM, #7 ALFIE Prov:JANNETH RIZVI MD 02/18/24 Ascorbic Acid/Ascorbate Sodium (Vitamin C 250 mg Tablet Chew) 250 Mg Tab.chew, 250 MG PO AM, #7 TAB.CHEW Prov:JANNETH RIZVI MD 02/18/24 Reported Medications Esomeprazole Magnesium (Esomeprazole Magnesium) 40 Mg Capsule.dr, 40 MG PO DAILY, CAP 02/16/24 Sennosides (Senna) 8.6 Mg Tablet, 2 TAB PO DAILY, TAB 02/16/24 Trazodone HCl (Trazodone HCl) 50 Mg Tablet, 50 MG PO HS, TAB 02/16/24 Acetaminophen (Acetaminophen) 325 Mg Tablet, 650 MG PO Q6HPRN PRN for PAIN LEVEL 1 TO 3, TAB 02/16/24 Ondansetron (Ondansetron Odt) 4 Mg Tab.rapdis, 4 MG PO Q6HPRN PRN for NAUSEA/VOMITING, TAB 02/16/24 Famotidine (Famotidine) 20 Mg Tablet, 20 MG PO DAILY, TAB 02/16/24 Escitalopram Oxalate (Escitalopram Oxalate) 20 Mg Tablet, 20 MG PO DAILY, TAB 02/16/24 Midodrine HCl (Midodrine HCl) 5 Mg Tablet, 5 MG PO BID PRN for LOW BP, TAB 02/16/24 Atorvastatin Calcium (Atorvastatin Calcium) 40 Mg Tablet, 40 MG PO HS, TAB 02/16/24 Levothyroxine Sodium (Levothyroxine Sodium) 125 Mcg Tablet, 125 MCG PO ACBKFST, TAB 02/16/24 Divalproex Sodium (Depakote) 125 Mg Tablet.dr, 125 MG PO DAILY, TAB 02/16/24 Oxcarbazepine (Trileptal) 150 Mg Tablet, 150 MG PO BID, TAB 02/16/24 Ferrous Sulfate (Ferrous Sulfate) 325 Mg (65 Mg Iron) Ectab, 325 MG PO DAILY, TAB.EC 02/16/24 Ipratropium/Albuterol Sulfate (Iprat-Albut 0.5-3(2.5) mg/3 ml) 0.5 Mg-3 Mg (2.5 Mg Base)/3 Ml Ampul.neb, 3 ML IH Q4HPRN PRN for SHORTNESS OF BREATH 02/16/24 Budesonide (Budesonide) 0.5 Mg/2 Ml Ampul.neb, 0.5 MG IH BIDRESP PRN for SHORTNESS OF BREATH 02/16/24 Fluticasone/Salmeterol (Advair 100-50 Diskus) 100 Mcg-50 Mcg/Dose Blst.w.dev, 1 EACH IH BID 02/16/24 Furosemide (Lasix 20Mg Tab) 20 Mg Tablet, 20 MG PO DAILY, TAB 02/16/24 Past Medical History Past Medical History: COPD, Diabetes-Type II, High Cholesterol, Heart Disease, Hypothyroid, Hypotension Surgical History: None Surgical History Other: ADENOIDS, TEETH History: Not Applicable RN Note Reviewed/Agreed w/PFSH: Yes Review of System Dictation CONSTITUTIONAL: NEGATIVE EXCEPT FOR HPI HEAD/FACE: NEGATIVE EXCEPT FOR HPI NO TENDERNESS EENT: NEGATIVE EXCEPT FOR HPI RESPIRATORY: NEGATIVE EXCEPT FOR HPI GASTROINTESTINAL/ABDOMINAL: NEGATIVE EXCEPT FOR HPI GENITOURINARY: NEGATIVE EXCEPT FOR HPI MUSCULOSKELETAL: NEGATIVE EXCEPT FOR HPI INTEGUMENTARY: NEGATIVE EXCEPT FOR HPI NEUROLOGICAL/PSYCH: NEGATIVE EXCEPT FOR HPI OCCIPITAL HEADACHE HEMATOLOGIC/LYMPHATIC: NEGATIVE EXCEPT FOR HPI ALL SYSTEMS NEGATIVE, EXCEPT NOTED ABOVE. 13 POINT REVIEW OF SYSTEMS ASSESSED AND ALL NEGATIVE EXCEPT FOR ABOVE. Initial Vital Sign VS Vital Signs Date Time Temp Pulse Resp B/P (MAP) Pulse Ox O2 Delivery O2 Flow Rate FiO2 04/28/25 14:41 97.9 64 14 131/65 100 Room Air 0 Physical Exam Dictation VITAL SIGNS REVIEWED GENERAL APPEARANCE: ALERT, ORIENTED X 3, NO ACUTE DISTRESS, WELL DEVELOPED, NOURISHED. PATIENT POOR MEMORY HEAD AND FACE: NON-TRAUMATIC. NO HEMATOMA NO WARD OR RACCOON SIGN EYES: PERRL, PINK CONJUNCTIVAS, EYELID NO TRAUMA, ANTERIOR CHAMBER WITH ARCUS SENILIS. EARS: PINNAS INTACT AND NO SIGNS OF TRAUMA OR ERYTHEMA EAR CANALS CLEAR AND NO DISCHARGE TM NO ERYTHEMA NO HEMOTYMPANUM NOSE: NO DISCHARGE, NO BLEEDING. OROPHARYNX: MOUTH NORMAL, TONGUE PINK, PHARYNX CLEAR,NO ERYTHEMA, TONSILS NO EXUDATES, NO ABSCESSES NOTED, MUCOUS MEMBRANE MOIST NECK: SUPPLE, NON-TENDER, NO THYROMEGALY, NO MASSES, NO JVD, NO BRUITS BREAST:DEFERRED CHEST:NO TENDERNESS, NO CREPITUS, NO PARADOXICAL MOVEMENT, NO RETRACTIONS LUNGS:CLEAR, WELL-VENTILATED, SYMMETRIC, NO RALES, NO WHEEZING, NO RHONCHI, NO STRIDOR, GOOD BREATH SOUNDS BILATERALLY HEART: REGULAR RATE, REGULAR RHYTHM, NO MURMUR, NO GALLOPS VASCULAR: NO PERIPHERAL EDEMA, ABDOMEN: SOFT, POSITIVE BOWEL SOUNDS, NONDISTENDED, NO GUARDING, NONTENDER, NO REBOUND, NO MASSES NO HEPATOMEGALY, NO SPLENOMEGALY, NO JIMENEZ'S SIGN, NO HERNIAS. RECTAL: DEFERRED GENITAL: DEFERRED NEUROLOGICAL: NORMAL SPEECH, MOTOR FUNCTION INTACT, SENSORY FUNCTION INTACT ALERT AND ORIENTED TIMES 1-2 POORLY REDIRECTABLE MUSCULOSKELETAL: NECK NONTENDER, FULL RANGE OF MOTION, BACK NONTENDER, FULL RANGE OF MOTION, NO NECK PAIN EXTREMITIES: NONTENDER, FULL RANGE OF MOTION SKIN: COLOR PINK, DRY, NO TURGOR, NO RASH, NO LACERATIONS, NO ABRASIONS, NO CONTUSIONS. LYMPHATIC: DEFERRED Results (Laboratory/Radiology) Laboratory/Radiology Laboratory Tests Test 04/28/25 15:17 White Blood Count 5.8 K/uL (4.8-10.8) Red Blood Count 3.61 MIL/uL (4.00-5.50) L Hemoglobin 12.7 g/dL (12.0-16.0) Hematocrit 38.9 % (36-48) Mean Corpuscular Volume 107.8 fL (79-99) H Mean Corpuscular Hemoglobin 35.2 pg (27.0-33.0) H Mean Corpuscular Hemoglobin Concent 32.6 g/dL (32.0-36.0) Red Cell Distribution Width 15.4 % (11.0-15.5) Platelet Count 151 K/uL (130-400) Mean Platelet Volume 11.6 fL (7.5-10.5) H Immature Granulocyte % (Auto) 0.2 % (0-1) Neutrophils (%) (Auto) 77.3 % (40.0-77.0) H Lymphocytes (%) (Auto) 15.1 % (21.0-51.0) L Monocytes (%) (Auto) 4.0 % (3.0-13.0) Eosinophils (%) (Auto) 2.9 % (0.0-8.0) Basophils (%) (Auto) 0.5 % (0.0-5.0) Neutrophils # (Auto) 4.5 K/uL (1.8-7.7) Lymphocytes # (Auto) 0.9 K/uL (1.0-4.8) L Monocytes # (Auto) 0.2 K/uL (0.1-1.0) Eosinophils # (Auto) 0.17 K/uL (0.00-0.70) Basophils # (Auto) 0.03 K/uL (0.00-0.20) Absolute Immature Granulocyte (auto 0.01 K/uL (0-1) Nucleated Red Blood Cells 0.0 % (0.0-0.19) Red Blood Cell Morphology See comments Sodium Level 139 mmol/L (136-145) Potassium Level 3.6 mmol/L (3.5-5.1) Chloride Level 102 mmol/L (101-111) Carbon Dioxide Level 31 mmol/L (21-32) Blood Urea Nitrogen 21 mg/dL (7-18) H Creatinine 1.6 mg/dL (0.5-1.0) H Glomerular Filtration Rate Calc 33 mL/min (>90) Random Glucose 104 mg/dL (70-105) Total Calcium 8.9 mg/dL (8.5-10.1) Magnesium Level 1.60 mg/dL (1.80-2.40) L Troponin I High Sensitivity 7 ng/L (4-50) Serum Alcohol < 3 mg/dL (0-10) CT Head Without IV contrast. CLINICAL HISTORY: OCCIPITAL HEADACHE STATUS POST FALL TECHNIQUE: Axial computed tomography images of the head/brain without intravenous contrast. COMPARISON: None provided. FINDINGS: BRAIN: No evidence of acute hemorrhage. No mass lesion. Chronic microvascular ischemic white matter disease within the periventricular and subcortical regions. 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 No CT evidence for acute territorial infarct. No midline shift or extra-axial collections. VENTRICLES: No hydrocephalus. ORBITS: The orbits are unremarkable. SINUSES AND MASTOIDS: The paranasal sinuses and mastoid air cells are clear. BONES: No fracture. SOFT TISSUES: Unremarkable. IMPRESSION: 1. No acute intracranial findings. If clinical concern persist recommend MRI of the brain for further evaluation. /[place] DICTATED BY: HANSEL HENRY Jr., MD DATE: 04/28/251741 ELECTRONICALLY SIGNED BY: HANSEL HENRY Jr., MD DATE: 04/28/251741 [facility], 1 View. CLINICAL HISTORY: CHEST PAIN COMPARISON: None provided. FINDINGS: LUNGS: Mild bibasilar airspace disease may reflect an infectious process. This is more pronounced at the right lung base. PLEURAL SPACES: No pleural effusion or pneumothorax. MEDIASTINUM: The cardiomediastinal silhouette is within normal limits. BONES: No acute osseous abnormality. IMPRESSION: 1. Mild bibasilar airspace disease, more pronounced at the right lung base, possibly representing an infectious process. /[place] Labs Reviewed?: Yes ED Course ED Course Orders Procedure Category Date Status Time Ct Head/Brain W/O CT 04/28/25 Resulted Contrast 14:52 Cbc With Differential LAB 04/28/25 Complete 14:52 Chest 1vw RAD 04/28/25 Resulted 14:52 12 Lead Ekg Tracing- EKG 04/28/25 Logged Technical 14:52 0.9%Nacl 1000ml (Ns PHA 04/28/25 Complete 1000ml) 15:00 Magnesium LAB 04/28/25 Complete 14:52 Troponin I High LAB 04/28/25 Complete Sensitivity 14:52 Basic Metabolic Panel LAB 04/28/25 Complete 14:52 One To One Sitter CPOE 04/28/25 Transmitted 15:40 Alcohol, Blood LAB 04/28/25 Complete 15:53 Current Medications Medications (Trade) Dose Ordered Sig/Jason Route PRN Reason Start Time Stop Time Status Last Admin Dose Admin Sodium Chloride 1,000 ml @ 0 mls/hr ONCE ONCE IV 04/28/25 15:00 04/28/25 15:01 DC Vital Signs Date Time Temp Pulse Resp B/P (MAP) Pulse Ox O2 Delivery O2 Flow Rate FiO2 04/28/25 14:41 97.9 64 14 131/65 100 Room Air 0 1540/PATIENT HAS A ATTEMPTED MULTIPLE TIMES TO GET UP AND WALK OUT OF THE EMERGENCY ROOM. SHE WILL REDIRECT FOR A FEW MINUTES AND THEN SHE ATTEMPTS TO GET UP AND LEAVE AND WALKED OUT. SHE IS THEN THREATENING STAFF DO NOT SURROUNDING ME AT THIS TIME. PATIENT ESCORTED BACK TO BED AND WE WILL ORDER 1-1 SITTER PATIENT THREAT TO [id number]/ 1715/PATIENT DOES NOT WISH TO STAY IN THE HOSPITAL I SPOKE WITH STAFF AT THE [facility], VENTURA PHILLIP. SHE AGREED THE PATIENT HE WILL BE RELEASED BACK TO [facility] PATIENT POORLY REDIRECTABLE, WHEN I SPOKE TO THE NURSE AT THE [facility] SHE SAID THIS IS HER BASELINE BEHAVIOR. Medical Decision Making MDM MDM: DIFFERENTIAL DIAGNOSIS: ACS/AMI/ELECTROLYTE IMBALANCE DEHYDRATION PNEUMONIA/BRONCHITIS/UTI/ RATIONALE: TESTS CONSIDERED AND ORDERED SECONDARY TO SHARED DECISION MAKING INCLUDE: LABS/RADIOLOGY/CT PREVIOUS OUTSIDE RECORDS REVIEWED: OLD ER VISITS. RISK OF COMPLICATION AND/OR MORBIDITY OR MORTALITY OF PATIENT MANAGEMENT: NONE MEDICATIONS-PER MEDICATION RECONCILIATION NEED FOR HOSPITALIZATION: PATIENT DOES NOT MEET CRITERIA FOR HOSPITALIZATION. PATIENT REFUSES NEED FOR EMERGENCY MAJOR/MINOR SURGERY: NO THERE ARE NO SOCIAL CONCERNS WITH THIS PATIENT. PRESCRIPTION DRUG MANAGEMENT DISCHARGED HOME PRESCRIPTIONS WILL INCLUDE SYMPTOMATIC CARE PATIENT'S PRIOR EXTERNAL MEDICAL RECORDS FROM OTHER ER VISITS WERE REVIEWED BY ME INDICATED. PRIOR TESTING AND RESULTS FROM PREVIOUS VISITS WERE REVIEWED. PRIOR TESTS WERE TAKEN INTO ACCOUNT WITH MEDICAL DECISION MAKING AND RESOURCE UTILIZATION, INDEPENDENT HISTORIAN/HISTORIANS WERE USED TO OBTAIN COMPLETE MEDICAL HISTORY. I INDEPENDENTLY INTERPRETED THE TEST THAT WERE PERFORMED, RESULTS WERE REVIEWED BY ME AND CONSIDERED FINDINGS ON RADIOLOGY IF ORDERED. MEDICAL MANAGEMENT AND EXAMINATION INTERPRETATION DISCUSSIONS WERE HAD BY ME WITH OTHER QUALIFIED HEALTHCARE PROFESSIONALS INDICATED FOR THE PATIENT'S CARE. DX & DISP Disposition: Discharge Departure Impression: Primary Impression: Dehydration Additional Impressions: Hypomagnesemia, Dementia Condition: Stable Scripts Magnesium Oxide/Mag Aa Chelate (Magnesium 300 mg Capsule) 300 Mg Capsule 300 MG PO DAILY for 10 Days, #10 CAP 0 Refills Prov: SAJAN SCHNEIDER 04/28/25 Additional Instructions: FOLLOW-UP WITH PRIMARY CARE PROVIDER IN 1 TO 2 DAYS. TAKE MEDICATIONS DIRECTED HERE IN THE EMERGENCY ROOM. OKAY TO CONTINUE HOME MEDICATIONS UNLESS OTHERWISE DISCUSSED DURING YOUR VISIT IN THE EMERGENCY ROOM TODAY. RETURN TO YOUR NEAREST EMERGENCY ROOM IF SYMPTOMS WORSEN OR IF THERE IS NO IMPROVEMENT. CALL 911 IF YOU NEED IMMEDIATE ASSISTANCE. TAKE TYLENOL OR MOTRIN [id number] NEEDED AND IF NO CONTRAINDICATIONS ARE PRESENT. INCREASE ORAL HYDRATION. A WOUND CULTURE OR URINE CULTURE WAS ORDERED HERE IN THE EMERGENCY ROOM DEPARTMENT PLEASE FOLLOW-UP WITH PRIMARY CARE PROVIDER AND ADVISE THEM TO GET REPEAT PORTS FROM OUR FACILITY. IF YOU HAD ANY YUVAL WRAP/SPLINTS THAT WERE APPLIED HERE, PLEASE DO NOT REMOVE THEM UNTIL YOU SEE YOUR PRIMARY CARE OR SPECIALTY. MEDICALLY CLEARED TO RETURNED TO KNOW HOME WITH A ALL MEDICATIONS AND TREATMENTS. TAKE MAGNESIUM REPLACEMENT DIRECTED UNTIL GONE. Referrals: BETTE PATEL DO (PCP) Time of Disposition: 17:16 I have reviewed the case, and I agree with, Diagnosis and Plan SAJAN SCHNEIDER Apr 28, 2025 14:53
[2025-04-28 15:29] LABS: IMMATURE GRANULOCYTE ABSOLUTE 0.01 K/uL (0-1); NUCLEATED RED BLOOD CELLS 0.0 % (0.0-0.19); PLATELET COUNT (AUTO) 151 K/uL (130-400); RED BLOOD CELL COUNT(AUTO) 3.61 MIL/uL (4.00-5.50); RED CELL DISTRIBUTION WIDTH 15.4 % (11.0-15.5); WHITE BLOOD COUNT (AUTO) 5.8 K/uL (4.8-10.8)
[2025-04-28 15:35] LABS: CREATININE 1.6 mg/dL (0.5-1.0); GLOMERULAR FILTR. RATE CALC 33.0 mL/min (>90); GLUCOSE,RANDOM 104.0 mg/dL (70-105); SODIUM SERUM 139.0 mmol/L (136-145); UREA NITROGEN, BLOOD 21.0 mg/dL (7-18)
--- NOTE | 2025-04-28 15:43 | NUR ---
ATTEMPTED TO CALL [facility]TS SERG MUELLER, BUT NO ANSWER AFTER 7 RINGS.
--- NOTE | 2025-04-28 15:46 | NUR ---
ATTEMPTED TO CALL PTS FRIEND MRS MANDUJANO. I WAS FORWARDED TO [employer] AND LEFT A MESSAGE FOR HER TO PLEASE RETURN MY CALL.
--- NOTE | 2025-04-28 15:59 | HMCIMG ---
EXAM: CR Chest, 1 View. CLINICAL HISTORY: CHEST PAIN COMPARISON: None provided. FINDINGS: LUNGS: Mild bibasilar airspace disease may reflect an infectious process. This is more pronounced at the right lung base. PLEURAL SPACES: No pleural effusion or pneumothorax. MEDIASTINUM: The cardiomediastinal silhouette is within normal limits. BONES: No acute osseous abnormality. IMPRESSION: 1. Mild bibasilar airspace disease, more pronounced at the right lung base, possibly representing an infectious process. /[place]
--- NOTE | 2025-04-28 16:43 | HMCIMG ---
EXAM: CT Head Without IV contrast. CLINICAL HISTORY: OCCIPITAL HEADACHE STATUS POST FALL TECHNIQUE: Axial computed tomography images of the head/brain without intravenous contrast. COMPARISON: None provided. FINDINGS: BRAIN: No evidence of acute hemorrhage. No mass lesion. Chronic microvascular ischemic white matter disease within the periventricular and subcortical regions. 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 No CT evidence for acute territorial infarct. No midline shift or extra-axial collections. VENTRICLES: No hydrocephalus. ORBITS: The orbits are unremarkable. SINUSES AND MASTOIDS: The paranasal sinuses and mastoid air cells are clear. BONES: No fracture. SOFT TISSUES: Unremarkable. IMPRESSION: 1. No acute intracranial findings. If clinical concern persist recommend MRI of the brain for further evaluation. /[place]
[2025-04-28] MEDS: 0.9%NACL 1000ML 1,000 ML IV ONE (16:50)
--- NOTE | 2025-04-28 16:51 | NUR ---
REFUSED IV AND IV FLUIDS DENIES PAIN
--- NOTE | 2025-04-28 17:11 | NUR ---
report given to [facility] patient going to pov with family back to [facility]
[2025-04-28] MEDS ORDERED: MAGN300C PO (17:17)
[2025-04-28 17:27] VITALS: BP 127/78; PULSE 70; RESP 16; TEMP 97.9; O2SAT 98
--- NOTE | 2025-04-28 19:04 | EKG ---
[facility] Test Date: 2025-04-28 Test Time: 14:55:37 Pat Name: GELY KOROMA Department: [facility] Room: Gender: F Turn Out: [id number] : 1950 Requested By: SAJAN SCHNEIDER Order Number: [id number] Reading MD: Lola Ortega Measurements Intervals [place] Rate: 64 P: 0 TX: 73 QRS: -64 QRSD: 104 T: 119 QT: 0 QTc: 0 Interpretive Statements Sinus rhythm Inferior infarct, old Anteroseptal infarct, age indeterminate Compared to ECG 01/06/2024 15:29:25 Myocardial infarct finding now present Ventricular premature complex(es) no longer present Left-axis deviation no longer present Electronically Signed On 04-30-2025 12:36:56 TECHNOLOGIES DIVISION CHAIR by Lola Ortega Please click the below link to view image of tracing.
== END 2025-04-28 17:25 | disposition home or self-care (01) ==
LOC: EDH 14:40
DX: E86.0 Dehydration (principal); E83.42 Hypomagnesemia; F03.90 Unspecified dementia, unspecified severity, without behavioral disturbance, psychotic disturbance, mood disturbance, and anxiety; E03.9 Hypothyroidism, unspecified; E11.9 Type 2 diabetes mellitus without complications; E78.00 Pure hypercholesterolemia, unspecified; I51.9 Heart disease, unspecified; J44.9 Chronic obstructive pulmonary disease, unspecified; Z79.51 Long term (current) use of inhaled steroids; Z79.82 Long term (current) use of aspirin; Z79.899 Other long term (current) drug therapy; Z88.2 Allergy status to sulfonamides; Z91.040 Latex allergy status; Z91.048 Other nonmedicinal substance allergy status
CPT/HCPCS: 36415; 70450; 71045; 80048; 83735; 84484; 85025; 93005; 99284